=== PATIENT | female | born 1995 | race Hispanic/Latino ===

== ENCOUNTER 2019-09-27 07:28 | Emergency (ER) | payer SELFPAY ==
[~2019-09-27] VITALS: Ht 154.9 cm; Wt 104.8 kg
[2019-09-27] MEDS ORDERED: TETANUS/DIPHTHERIA TOX ADULT 0.5 ML SYR IM ONE (07:45)
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
== END 2019-09-27 10:22 | disposition home or self-care (01) ==
LOC: ER 07:38
DX: S01.511A Laceration without foreign body of lip, initial encounter (principal); S90.02XA Contusion of left ankle, initial encounter; Y04.0XXA Assault by unarmed brawl or fight, initial encounter; Y92.89 Other specified places as the place of occurrence of the external cause
CPT/HCPCS: 70450; 70486; 72125; 90471; 90714; 99284

== ENCOUNTER 2020-02-28 15:45 | Emergency (ER) | payer SELFPAY ==
[~2020-02-28] VITALS: Ht 157.5 cm; Wt 105.2 kg
[2020-02-28 17:12] VITALS: BP 130/109
== END 2020-02-28 17:13 | disposition home or self-care (01) ==
LOC: ER 16:14
DX: S63.502A Unspecified sprain of left wrist, initial encounter (principal); W01.0XXA Fall on same level from slipping, tripping and stumbling without subsequent striking against object, initial encounter; Y92.89 Other specified places as the place of occurrence of the external cause; M32.9 Systemic lupus erythematosus, unspecified
CPT/HCPCS: 99284

== ENCOUNTER 2020-05-14 17:05 | Emergency (ER) | payer SELFPAY ==
[~2020-05-14] VITALS: Ht 157.5 cm; Wt 105.2 kg
[2020-05-14] MEDS ORDERED: METHYLPREDNISOLONE SOD SUCC 125 MG/2ML VIAL IM ONE (17:45)
[2020-05-14] MEDS ORDERED: DIPHENHYDRAMINE HCL INJ 50 MG/ML VIAL IM ONE (17:45)
[2020-05-14] MEDS ORDERED: METOCLOPRAMIDE HCL 10 MG/2ML VIAL IV ONE (18:45)
[2020-05-14] MEDS ORDERED: SODIUM CHLORIDE 0.9% 1000ML 1,000 ML IV SCH (18:45)
[2020-05-14] MEDS ORDERED: ACETAMIN/BUTALBITAL/CAFFEINE TAB PO ONE (18:45)
[2020-05-14 19:55] VITALS: BP 128/88
[2020-05-14] MEDS ORDERED: ULTRAM 50MG50 MG PO (19:57)
[2020-05-14] MEDS ORDERED: PREDNISONE20 MG PO (19:57)
== END 2020-05-14 20:03 | disposition home or self-care (01) ==
LOC: ER 17:47
DX: M32.9 Systemic lupus erythematosus, unspecified (principal); M79.89 Other specified soft tissue disorders; R51.9 Headache, unspecified
CPT/HCPCS: 99283; J1200; J2765; J2930; J7030

== ENCOUNTER 2020-06-14 01:41 | Emergency (ER) | payer SELFPAY ==
[~2020-06-14] VITALS: Ht 157.5 cm; Wt 105.2 kg
[~2020-06-14 01:41] MED LIST: PREDNISONE20 MG PO; ULTRAM 50MG50 MG PO
[2020-06-14] MEDS ORDERED: PREDNISONE20 MG PO (02:19)
== END 2020-06-14 02:23 | disposition home or self-care (01) ==
LOC: ER 01:59
DX: M32.9 Systemic lupus erythematosus, unspecified (principal)
CPT/HCPCS: 99282

== ENCOUNTER 2021-08-02 16:31 | Emergency (ER) | payer BC ==
[~2021-08-02] VITALS: Ht 157.5 cm; Wt 105.2 kg
[2021-08-02 18:37] LABS: BASOPHILS % 0.2 % (0.0-1.0); EOSINOPHILS % 0.1 % (0.0-6.0); HEMATOCRIT 37.6 % (34.2-44.1); HEMOGLOBIN 12.2 g/dL (12.0-16.0); LYMPHOCYTES % 9.5 % (18.0-39.1); MEAN CORPUSCULAR HEMOGLOBIN 29.5 pg (28-32); MEAN CORPUSCULAR HGB CONC 32.4 g/dL (31-35); MEAN CORPUSCULAR VOLUME 90.8 fL (81-99); MONOCYTES # (AUTO) 0.5 (0.2-0.8); MONOCYTES % 4.4 % (4.4-11.3); NEUTROPHILS # (AUTO) 9.1 (2.1-6.9); NEUTROPHILS % 85.3 % (38.7-80.0); PLATELET COUNT 216 x10e3/uL (140-360); RED BLOOD COUNT 4.14 x10e6/uL (3.6-5.1); RED CELL DISTRIBUTION WIDTH 12.9 % (11.7-14.4)
[2021-08-02 20:09] LABS: ALBUMIN 3.2 g/dL (3.5-5.0); ALBUMIN/GLOBULIN RATIO 0.8 (0.8-2.0); ANION GAP 13.4 mmol/L (8-16); CALCIUM 8.3 mg/dL (8.4-10.2); CREATININE, SERUM 0.76 mg/dL (0.57-1.11); POTASSIUM 4.4 mmol/L (3.5-5.1)
== END 2021-08-02 20:47 | disposition home or self-care (01) ==
LOC: ER 17:32
DX: R21 Rash and other nonspecific skin eruption (principal); T46.1X5A Adverse effect of calcium-channel blockers, initial encounter; M32.9 Systemic lupus erythematosus, unspecified; R94.31 Abnormal electrocardiogram [ECG] [EKG]
CPT/HCPCS: 36415; 71045; 80053; 85025; 85379

== ENCOUNTER 2024-04-12 05:41 | Emergency (ER) | payer SELFPAY ==
[~2024-04-12] VITALS: Ht 154.9 cm; Wt 64.4 kg
[2024-04-12] MEDS ORDERED: SODIUM CHLORIDE FLUSH 10 ML SYR IV PRN (06:00)
[2024-04-12 06:31] LABS: EOSINOPHILS % 0.4 % (0.0-6.0); HEMATOCRIT 27.6 % (34.2-44.1); HEMOGLOBIN 9.1 g/dL (12.0-16.0); LYMPHOCYTES # (AUTO) 1.3 (1.0-3.2); LYMPHOCYTES % 25.3 % (18.0-39.1); MEAN CORPUSCULAR HEMOGLOBIN 30.4 pg (28-32); MEAN CORPUSCULAR VOLUME 92.3 fL (81-99); MONOCYTES # (AUTO) 0.3 (0.2-0.8); MONOCYTES % 6.6 % (4.4-11.3); NEUTROPHILS # (AUTO) 3.5 (2.1-6.9); NEUTROPHILS % 67.5 % (38.7-80.0); PLATELET COUNT 145 x10e3/uL (140-360); RED BLOOD COUNT 2.99 x10e6/uL (3.6-5.1); RED CELL DISTRIBUTION WIDTH 13.5 % (11.7-14.4); WHITE BLOOD COUNT 5.13 x10e3/uL (4.8-10.8)
[2024-04-12] MEDS: KETOROLAC TROMETHAMINE 30 MG/ML VIAL IV STA (06:35)
[2024-04-12 06:49] LABS: CORONAVIRUS COVID-19 AG NEGATIVE (NEGATIVE); INFLUENZA A AG NEGATIVE (NEGATIVE); INFLUENZA B AG NEGATIVE (NEGATIVE)
[2024-04-12 07:00] LABS: ALBUMIN 2.5 g/dL (3.5-5.0); ALBUMIN/GLOBULIN RATIO 0.5 (0.8-2.0); ANION GAP 15.3 mmol/L (8-16); BILIRUBIN,TOTAL 0.4 mg/dL (0.2-1.2); CALCIUM 8.2 mg/dL (8.4-10.2); CREATININE, SERUM 1.34 mg/dL (0.57-1.11); TOTAL PROTEIN 7.1 g/dL (6.5-8.1)
[2024-04-12 07:04] LABS: POTASSIUM 3.3 mmol/L (3.5-5.1)
[2024-04-12 07:08] LABS: TROPONIN I 0.016 ng/mL (0-0.300)
[2024-04-12] MEDS ORDERED: SODIUM CHLORIDE 0.9% 1000ML 1,000 ML IV SCH (07:30)
[2024-04-12] MEDS ORDERED: IOPAMIDOL 370 MG/ML 100 ML INFUS..BTL INJ ONE (07:38)
[2024-04-12] MEDS ORDERED: DEXAMETHASONE4 MG PO (09:01)
[2024-04-12] MEDS: DEXAMETHASONE SOD PHOS 10 MG/1 ML VIAL IV ONE (09:40)
[2024-04-12 09:46] VITALS: PULSE 98; RESP 16; TEMP 98.7; O2SAT 100
== END 2024-04-12 09:54 | disposition home or self-care (01) ==
LOC: ER 05:49
DX: R05.9 Cough, unspecified (principal); R07.89 Other chest pain; L93.0 Discoid lupus erythematosus; Z98.84 Bariatric surgery status
CPT/HCPCS: 36415; 71045; 71260; 80053; 84484; 84702; 85025; 85379; 87428; 93005; 94760; 99284; J1100; J1885; J7030; Q9967